=== PATIENT | male | born 1995 | race Caucasian/White ===

== ENCOUNTER 2023-04-24 18:20 | Emergency (ER) | payer SELFPAY ==
[~2023-04-24] VITALS: Ht 172.7 cm; Wt 73.0 kg
[2023-04-24 18:35] VITALS: BP 138/84; PULSE 83; RESP 16; TEMP 98; O2SAT 97
== END 2023-04-24 22:19 | disposition left against medical advice (07) ==
LOC: ER 18:20
DX: M79.603 Pain in arm, unspecified (principal); Z53.21 Procedure and treatment not carried out due to patient leaving prior to being seen by health care provider
CPT/HCPCS: 99281

== ENCOUNTER 2023-04-28 09:29 | Emergency (ER) | payer SELFPAY ==
[~2023-04-28] VITALS: Ht 177.8 cm; Wt 84.0 kg
[2023-04-28 09:40] VITALS: BP 125/86; PULSE 76; RESP 18; TEMP 98.7; O2SAT 99
== END 2023-04-28 10:58 | disposition home or self-care (01) ==
LOC: EDBD 09:29 → ER 09:29
DX: I80.9 Phlebitis and thrombophlebitis of unspecified site (principal); F41.9 Anxiety disorder, unspecified
CPT/HCPCS: 99281

== ENCOUNTER 2023-07-05 00:13 | Emergency (ER) | payer BC ==
[~2023-07-05] VITALS: Ht 177.8 cm; Wt 86.0 kg
[2023-07-05 00:23] VITALS: PULSE 80
[2023-07-05 00:38] VITALS: BP 123/81; RESP 17; TEMP 98.3; O2SAT 98
== END 2023-07-05 01:30 | disposition home or self-care (01) ==
LOC: ER 00:44
DX: B34.9 Viral infection, unspecified (principal)
CPT/HCPCS: 87070; 87430; 99283